=== PATIENT | male | born 1955 | race African-American/Black ===

== ENCOUNTER 2022-08-17 12:49 | Emergency (ER) | payer MEDICARE, MEDICAID ==
[~2022-08-17] VITALS: Ht 208.3 cm; Wt 86.0 kg
[2022-08-17] MEDS ORDERED: KETOROLAC 60MG/2ML VIAL IM ONE (13:30)
[2022-08-17 13:45] VITALS: BP 162/89
[2022-08-17] MEDS ORDERED: IBUP-2029 MT (15:20)
== END 2022-08-17 15:36 | disposition home or self-care (01) ==
LOC: ER 12:49
DX: B34.9 Viral infection, unspecified (principal); R51.9 Headache, unspecified; H61.22 Impacted cerumen, left ear; I10 Essential (primary) hypertension
CPT/HCPCS: 96372; 99283; J1885